=== PATIENT | female | born 1980 | race Caucasian/White ===

== ENCOUNTER 2024-02-29 21:45 | Inpatient (IN) | payer BC ==
[2024-02-29 22:32] VITALS: BMI 19.5
[2024-02-29] MEDS ORDERED: ACETAMINOPHEN 325 MG TABLET (FP) PO PRN (22:44)
[2024-02-29] MEDS ORDERED: POLYETHYLENE GLYCOL (HEALTHYLAX) 3350 17 GM PACKET PO PRN (22:44)
[2024-02-29] MEDS ORDERED: BENZOCAINE/MENTHOL (CHLORASEPTIC ) LOZENGE MM PRN (22:44)
[2024-02-29] MEDS ORDERED: LOPERAMIDE HCL 2 MG CAPSULE PO PRN (22:44)
[2024-02-29] MEDS ORDERED: P-EPHED 60MG/TRIPROLIDI 2.5MG TABLET PO PRN (22:44)
[2024-02-29] MEDS ORDERED: METHOCARBAMOL 500 MG TABLET PO PRN (22:44)
[2024-02-29] MEDS ORDERED: BENZONATATE 200 MG CAPSULE PO PRN (22:44)
[2024-02-29] MEDS ORDERED: BISMUTH SUBSALICYLATE 524 MG/30 ML PO PRN (22:44)
[2024-02-29] MEDS ORDERED: IBUPROFEN 400 MG TABLET (FP) PO PRN (22:44)
[2024-02-29] MEDS ORDERED: NALOXONE (NARCAN) HCL 4 MG/0.1 ML SPRAY NS PRN (22:44)
[2024-02-29] MEDS ORDERED: DICYCLOMINE HCL 10 MG CAPSULE PO PRN (22:44)
[2024-02-29] MEDS ORDERED: MAGNESIUM HYDROX 2400MG/30ML ORAL SUSPENSION 30 ML CUP PO PRN (22:44)
[2024-02-29] MEDS ORDERED: IBUPROFEN 600 MG TABLET (FP) PO PRN (22:44)
[2024-02-29] MEDS ORDERED: guaiFENesin 600 MG TABLET.ER (FP) PO PRN (22:44)
[2024-02-29] MEDS ORDERED: ONDANSETRON *ODT* 4 MG TABLET SL PRN (22:44)
[2024-02-29] MEDS ORDERED: MAG HYDROX/AL HYDROX/SIMETH 30 ML UNIT-DOSE CUP PO PRN (22:44)
[2024-03-01] MEDS ORDERED: diazePAM 5 MG TABLET ONE (00:41)
[2024-03-01] MEDS: diazePAM 5 MG TABLET PO SCH (00:45)
[2024-03-01] MEDS ORDERED: MELATONIN 5 MG TABLETS ONE (00:46)
[2024-03-01 09:25] LABS: CHLORIDE 104 mmol/L (98-107); POTASSIUM 3.9 mmol/L (3.5-5.1); SODIUM 137 mmol/L (136-145)
[2024-03-01 09:27] LABS: HEMOGLOBIN 12.3 GM/dL (10.7-15.3); MCH 32.4 pg (25.7-33.7); MCHC 33.3 g/dl (32.0-36.0); MEAN CELL VOLUME 97.2 fl (80-96); MEAN PLT VOLUME 8.1 fl (7.5-11.1); PLATELET COUNT 254 10^3/uL (134-434); RBC 3.81 M/mm3 (3.60-5.2); WHITE BLOOD COUNT 4.2 K/mm3 (4.0-10.0)
[2024-03-01 10:06] LABS: ALBUMIN 3.4 g/dl (3.4-5.0); CALCIUM 9.1 mg/dL (8.5-10.1)
[2024-03-01 10:07] LABS: ANION GAP 6 mmol/L (4-13); BLOOD UREA NITROGEN 5.3 mg/dL (7-18); CO2 27 mmol/L (21-32); GLUCOSE,RANDOM 89 mg/dL (74-106)
[2024-03-01 10:09] LABS: CREATININE 0.6 mg/dL (0.55-1.3); SGOT/AST 40 U/L (15-37); SGPT/ALT 18 U/L (13-61)
[2024-03-01 10:10] LABS: BILIRUBIN,TOTAL 1.2 mg/dL (0.2-1)
[2024-03-01 10:11] LABS: TOT PROT 6.8 g/dl (6.4-8.2)
[2024-03-01 10:12] LABS: ALK PHOS 59 U/L (45-117)
[2024-03-01] MEDS: PRENATAL VITAMINS W/ FOLIC ACID TABLET (FP) PO SCH (10:15)
[2024-03-01] MEDS: diazePAM 5 MG TABLET PO PRN (13:24)
[2024-03-01] MEDS: hydrOXYzine PAMOATE 25 MG CAPSULE (FP) PO PRN (17:28)
[2024-03-01] MEDS ORDERED: MELATONIN 5 MG TABLETS PO SCH (22:00)
[2024-03-01] MEDS: THIAMINE 100 MG TABLET PO SCH (22:55)
[2024-03-01] MEDS: SUVOREXANT 10 MG TABLET PO PRN (23:07)
[2024-03-02] MEDS: diazePAM 5 MG TABLET PO SCH (06:14)
[2024-03-02 10:00] VITALS: BP 125/81; PULSE 92; RESP 17; TEMP 98.8
[2024-03-02] MEDS: NALOXONE (NYS OPIOID OVERDOSE PROGRAM) 4 MG/0.1 ML SPRAY NS SCH (11:18)
[2024-03-03] MEDS ORDERED: diazePAM 5 MG TABLET PO SCH (06:00)
[2024-03-04] MEDS ORDERED: diazePAM 5 MG TABLET PO ONE (06:00)
== END 2024-03-02 11:34 | disposition home or self-care (01) | DRG 775 ==
LOC: YASAS 21:45 → Y6N 03-01 02:17
PROVIDERS: ADMIT Allergy & Immunology; ATTEND Allergy & Immunology
PROC: HZ2ZZZZ Detoxification Services for Substance Abuse Treatment (ICD-10-PCS; principal; 2024-03-01)
DX: F10.230 Alcohol dependence with withdrawal, uncomplicated (principal); F10.280 Alcohol dependence with alcohol-induced anxiety disorder; F10.24 Alcohol dependence with alcohol-induced mood disorder; F19.24 Other psychoactive substance dependence with psychoactive substance-induced mood disorder; F43.10 Post-traumatic stress disorder, unspecified
CPT/HCPCS: 36415; 80053; 80305; 80307; 81025; 85027; 86780; 93005; 93010